=== PATIENT | male | born 1985 | race Caucasian/White ===

== ENCOUNTER 2021-12-09 13:43 | Outpatient (CLI) | payer OTHER ==
--- NOTE | 2021-12-09 18:04 | MRI Report ---
PROCEDURE: Cervical Spine W/O INDICATIONS: HEADACHE TECHNIQUE: Noncontrast sagittal T1 spin echo and T2 fast spin echo, sagittal STIR, foraminal oblique sagittal T2 fast spin echo, and axial gradient echo or T2 fast spin echo through the cervical spine. COMPARISON: Correlation is made with the accompanying brain MRI, 12/09/2021. FINDINGS: Image quality: Motion artifact is noted. Alignment and Curvature: There is normal bony alignment . Bone Marrow: Marrow demonstrates normal overall signal. Spinal Cord: Visualized spinal cord has normal size and signal. No cerebellar tonsillar herniation. Paraspinous Soft Tissues: No paravertebral masses. Prevertebral soft tissues are normal in thicknes s. C2-C3: No significant abnormality is seen. C3-C4: The disc height and disc signal are relatively well-preserved. Mild to moderate disc osteoph yte complex is seen, which is eccentric to the right. There is at least moderate bilateral neuroforam inal narrowing seen. Minimal central canal narrowing is seen. C4-C5: The disc height and disc signal are well preserved. Mild disc osteophyte complex is seen, whi ch is eccentric to the left. There is moderate left-sided and minimal right-sided neuroforaminal narr owing. The central canal is widely patent. C5-C6: The disc height and disc signal are well preserved. Mild to moderate disc osteophyte complex is seen. There is a central/right disc osteophyte protrusion seen. Mild facet hypertrophy is seen. There is at least moderate bilateral neuroforaminal narrowing seen, right worse than left. C6-C7: The disc height and disc signal are well preserved. Mild disc osteophyte complex is seen. Mi ld facet hypertrophy is seen. There is moderate to severe bilateral neuroforaminal narrowing seen. Mild central canal narrowing is seen. C7-T1: The disc height and disc signal are well preserved. Mild facet hypertrophy is seen. There i s moderate left-sided and no significant right-sided neuroforaminal narrowing. The central canal is widely patent. IMPRESSION: Multiple levels of cervical spine degenerative change are seen, which are overall worst at C5-C6 and C6-C7. Reviewed by: Stepan Hill MD on 12/09/2021 5:03 PM [facility] Approved by: Stepan Hill MD on 12/09/2021 5:03 PM [facility] Station ID: [id number]
--- NOTE | 2021-12-09 18:07 | MRI Report ---
PROCEDURE: Brain W/O INDICATIONS: HEADACHE TECHNIQUE: Noncontrast axial T1 spin echo, axial T2 fast spin echo, sagittal and axial FLAIR, coronal T2 fast sp in echo, axial gradient echo, axial diffusion and ADC through the brain. COMPARISON: Correlation is made with the accompanying brain MRI, 12/09/2021. FINDINGS: Image quality: Excellent. CSF Spaces: Basal cisterns are patent. No extra-axial fluid collections. Ventricles are normal in size and shape. Brain: No intracranial masses or hemorrhage. [place]re[place]/white matter interface is normal. A few scattere d foci of T2 hyperintensity can be seen within the periventricular and deep white matter. A few juxta cortical foci can be seen, as on series 601 images 15, 16, and 20. Brainstem appears normal. Diffusi on-weighted images demonstrate no acute ischemic insult. No chronic ischemic insults. Normal intrav ascular flow voids are present. Skull and face: Calvarium has normal marrow signal. Orbits appear normal. Sinuses: Sinuses and mastoids are clear. IMPRESSION: A cause of headache is not observed on these images. Scattered foci of T2-weighted hyperintensity can be seen within the white matter, including within th e juxtacortical white matter. In a patient of this age, please consider sequelae of migraine headache s versus early/mild multiple sclerosis. Reviewed by: Stepan Hill MD on 12/09/2021 5:05 PM [facility] Approved by: Stepan Hill MD on 12/09/2021 5:05 PM [facility] Station ID: [id number]
== END 2021-12-09 13:44 | disposition home or self-care (01) ==
LOC: DI 13:43
PROVIDERS: ATTEND Student in an Organized Health Care Education/Training Program
DX: R51.9 Headache, unspecified (principal); M47.812 Spondylosis without myelopathy or radiculopathy, cervical region; M47.814 Spondylosis without myelopathy or radiculopathy, thoracic region